=== PATIENT | male | born 1980 | race Caucasian/White ===

== ENCOUNTER 2016-04-27 11:53 | Observation (INO) | payer OTHER ==
[2016-04-27] MEDS ORDERED: Zofran 4 MG/2 ML VIAL IV STA (12:15)
[2016-04-27] MEDS ORDERED: Sodium Chloride 0.9% 1000 ML 1,000 ML IV STA ×2 (12:15→14:13)
--- NOTE | 2016-04-27 12:19 | ERPHSYRPT ---
- History of Present Illness Source: patient Exam Limitations: clinical condition Patient Subjective Stated Complaint: COUGH, CONGESTION, V/D FOR FOUR DAYS Triage Nursing Assessment: AMBULATED TO ROOM WITHOUT DIFFICULTY. SKIN W/D, COLOR NORMAL, RESP NONLABORED. BREATH SOUNDS DIMINISHED. INTERMITTENT NONPROD COUGH. Physician History: Patient with cough congestion and wheezing fever chills weakness over past 4 days this continues at this time with yellow green thick sputum nasal congestion generalized malaise and today 2 episodes of vomiting and one episode of diarrhea. No abdominal pain except with the actual vomiting and diarrhea. Smokes one half pack cigarettes per day. Works full-time at [employer] in [place]. Unable to go to work yesterday. Timing/Duration: today, day(s) (4), worse Modifying Factors: Improves With: rest Associated Symptoms: nausea, vomiting, diaphoresis, cough, chills, fever, loss of appetite, malaise, weakness, No abdominal pain Allergies/Adverse Reactions: acetaminophen [From Darvocet-N 100] Allergy (Verified 04/27/16 12:07) propoxyphene napsylate [From Darvocet-N 100] Allergy (Verified 04/27/16 12:07) Hx Tetanus, Diphtheria Vaccination/Date Given: Yes Hx Influenza Vaccination/Date Given: Yes Hx Pneumococcal Vaccination/Date Given: Yes - Review of Systems Constitutional: Fever, Chills, Fatigue, Lethargy, Malaise, Night Sweats, Weakness Eyes: No Symptoms Ears, Nose, & Throat: Nose Congestion, Throat Pain Respiratory: Cough Cardiac: No Symptoms Abdominal/Gastrointestinal: Nausea, Vomiting, Diarrhea, No Abdominal Pain Genitourinary Symptoms: No Symptoms Musculoskeletal: No Symptoms Skin: No Symptoms Neurological: No Symptoms Psychological: No Symptoms Endocrine: No Symptoms Hematologic/Lymphatic: No Symptoms Immunological/Allergic: No Symptoms All Other Systems: Reviewed and Negative - Past Medical History Pertinent Past Medical History: Yes Neurological History: No Pertinent History ENT History: No Pertinent History Cardiac History: No Pertinent History Respiratory History: No Pertinent History Endocrine Medical History: No Pertinent History Musculoskeletal History: Fractures, Other GI Medical History: No Pertinent History History: No Pertinent History Psycho-Social History: Depression Male Reproductive Disorders: No Pertinent History Other Medical History: chronic back pain - Past Surgical History Past Surgical History: Yes Neuro Surgical History: No Pertinent History Cardiac: No Pertinent History Respiratory: No Pertinent History Gastrointestinal: No Pertinent History Genitourinary: No Pertinent History Musculoskeletal: No Pertinent History Male Surgical History: No Pertinent History Other Surgical History: T and A - Social History Smoking Status: Current every day smoker How long have you smoked: 17 Exposure to second hand smoke: Yes Drug Use: none Patient Lives Alone: No - Nursing Vital Signs Nursing Vital Signs: Initial Vital Signs Temperature 97.8 F Temperature Source Oral Pulse Rate 77 Respiratory Rate 18 Blood Pressure [Right Arm] 101/57 Pain Intensity 4 - Physical Exam General Appearance: mild distress, alert, anxiety, obese Ears, Nose, Throat Exam: pharyngeal erythema, other (nasal congestion) Neck Exam: normal inspection Respiratory Exam: airway intact, diminished breath sounds, prolonged expirations , crackles/rales, rhonchi, No respiratory distress Cardiovascular Exam: regular rate/rhythm, normal heart sounds, normal peripheral pulses Gastrointestinal/Abdomen Exam: soft, No tenderness, No distention, No mass, No guarding, No rebound Rectal Exam: deferred Back Exam: normal inspection, normal range of motion, No CVA tenderness Extremity Exam: normal inspection, normal range of motion, No calf tenderness, No cristina's sign Neurologic Exam: oriented x 3, cooperative, No motor deficits, No sensory deficit Skin Exam: warm, dry, pale, No rash SpO2 Interpretation: borderline oxygenation SpO2: 93 Oxygen Delivery: Room Air - Radiology Exams Chest X-ray Interpretation: Reviewed by me, Discussed w/ radiologist, Infiltrates ( subtle right infra-infrahilar infiltrate versus atelectasis) Ordered Tests: Active Orders 24 hr Category Date Time Status Admission/Status Order ROUTINE Care 04/27/16 16:07 Active Code Status Order ROUTINE Care 04/27/16 16:07 Active Fall Protocol Q1H Care 04/27/16 16:07 Active IV Care Q6H Care 04/27/16 16:07 Active Miscellaneous Nursing Order ROUTINE Care 04/27/16 16:07 Active Yosi Jocelynee, Apply ROUTINE Care 04/27/16 16:07 Active Telemetry ROUTINE Care 04/27/16 16:07 Active Weight,Daily 0600 Care 04/27/16 16:07 Active CBC AM.LAB Lab 04/28/16 05:00 Completed CMP AM.LAB Lab 04/28/16 05:00 Completed MAGNESIUM AM.LAB Lab 04/28/16 05:00 Completed Respiratory Nebulizer Q4H RT 04/27/16 16:07 Completed Respiratory Therapy Consult ROUTINE RT 04/27/16 16:07 Completed Transfer Order Routine Transfer 04/27/16 15:34 Completed Medication Summary Discontinued Medications Generic Name Dose Route Start Last Admin Trade Name Freq PRN Reason Stop Dose Admin Acetaminophen 500 mg 04/27/16 16:07 04/28/16 07:42 Tylenol Extra Strength 500 Mg PO 05/27/16 16:06 500 mg Q4H PRN PRN Administration FEVER Albuterol/Ipratropium 3 ml 04/27/16 14:13 04/27/16 14:50 Duoneb 0.5-3 Mg/3 Ml Neb IH 04/27/16 14:14 3 ml STAT ONE Administration Albuterol/Ipratropium Confirm 04/27/16 14:23 Duoneb 0.5-3 Mg/3 Ml Neb Administered 04/27/16 14:24 Dose 3 ml IH .STK-MED ONE Albuterol/Ipratropium 3 ml 04/27/16 19:00 04/28/16 06:50 Duoneb 0.5-3 Mg/3 Ml Neb IH 05/27/16 18:59 3 ml Q4HRT SHAY Administration Albuterol/Ipratropium 3 ml 04/28/16 08:34 Duoneb 0.5-3 Mg/3 Ml Neb IH 05/28/16 08:33 Q4HPRN PRN SHORTNESS OF BREATH/WHEEZING Sodium Chloride 1,000 mls @ 999 mls/hr 04/27/16 12:15 04/27/16 12:33 Sodium Chloride 0.9% 1000 Ml IV 04/27/16 13:15 999 mls/hr .Q1H1M STA Administration Sodium Chloride Confirm 04/27/16 12:24 Sodium Chloride 0.9% 1000 Ml Administered 04/27/16 12:25 Dose 1,000 mls @ ud .ROUTE .STK-MED ONE Sodium Chloride 1,000 mls @ 999 mls/hr 04/27/16 14:13 04/27/16 14:20 Sodium Chloride 0.9% 1000 Ml IV 04/27/16 15:13 999 mls/hr .Q1H1M STA Administration Ceftriaxone Sodium/Dextrose 50 mls @ 100 mls/hr 04/27/16 14:16 04/27/16 14:23 Rocephin 2 Gm-D5w 50ml Bag IV 04/27/16 14:45 100 mls/hr STAT ONE Administration Sodium Chloride Confirm 04/27/16 14:18 Sodium Chloride 0.9% 1000 Ml Administered 04/27/16 14:19 Dose 1,000 mls @ ud .ROUTE .STK-MED ONE Ceftriaxone Sodium/Dextrose Confirm 04/27/16 14:21 Rocephin 2 Gm-D5w 50ml Bag Administered 04/27/16 14:22 Dose 50 mls @ ud IV .STK-MED ONE Ceftriaxone Sodium/Dextrose 50 mls @ 100 mls/hr 04/28/16 10:00 04/28/16 08:28 Rocephin 1 Gm-D5w 50 Ml Bag IV 05/28/16 09:59 100 mls/hr Q24H10 SHAY Administration Azithromycin 250 mls @ 167 mls/hr 04/27/16 17:00 04/27/16 17:16 Zithromax 500 Mg/ 250 Ml Nacl Premix IV 05/27/16 16:59 167 mls/hr Q24H SHAY Administration Sodium Chloride 1,000 mls @ 150 mls/hr 04/27/16 16:07 04/28/16 10:24 Sodium Chloride 0.9% 1000 Ml IV 05/27/16 16:06 150 mls/hr .Q6H40M SHAY Administration Ondansetron HCl 4 mg 04/27/16 12:15 04/27/16 12:33 Zofran 4 Mg/2 Ml Vial IV 04/27/16 12:16 4 mg STAT STA Administration Ondansetron HCl Confirm 04/27/16 12:24 Zofran 4 Mg/2 Ml Vial Administered 04/27/16 12:25 Dose 4 mg .ROUTE .STK-MED ONE Ondansetron HCl 4 mg 04/27/16 16:07 Zofran 4 Mg/2 Ml Vial IV 05/27/16 16:06 Q6H PRN PRN NAUSEA/VOMITING Oseltamivir Phosphate 75 mg 04/27/16 14:17 04/27/16 14:30 Tamiflu 75mg Capsule PO 04/27/16 14:18 75 mg STAT ONE Administration Oseltamivir Phosphate Confirm 04/27/16 14:29 Tamiflu 75mg Capsule Administered 04/27/16 14:30 Dose 75 mg PO .STK-MED ONE Oseltamivir Phosphate 75 mg 04/27/16 22:00 04/28/16 07:42 Tamiflu 75mg Capsule PO 05/27/16 21:59 75 mg BID SHAY Administration Lab/Rad Data: Laboratory Result Diagrams 04/27/16 12:35 04/27/16 12:35 Laboratory Results 04/27/16 04/27/16 04/27/16 Range/Units 14:45 12:40 12:40 WBC (4.0-10.5) K/mm3 RBC (4.1-5.6) M/mm3 Hgb (12.5-18.0) gm/dl Hct (42-50) % MCV (78-100) fl MCH (26-32) pg MCHC (32-36) g/dl RDW (11.5-14.0) % Plt Count (150-450) K/mm3 MPV (6-9.5) fl Segmented Neutrophils (36.-66.) % Lymphocytes (Manual) (24-44) % Monocytes (Manual) (0.0-12.0) % Eosinophils (Manual) (0.00-3.0) % Differential Comment Platelet Estimate (NORMAL) Puncture Site RIGHT RADIAL pCO2 35 (35-45) mmHg pO2 84 (75-100) mmHg Base Excess 0.8 (-2.0-2.0) O2 Saturation 91.6 L (94-100) g/dF ABG pH 7.45 (7.35-7.45) ABG HCO3 24.3 (22-28) ABG O2 Sat (Measured) 98.7 (95-100) % Raymond Test YES A-a Gradient 22 a/A Ratio 0.79 Hemoglobin 16.3 Carboxyhemoglobin 6.4 (0.0-6.9) % THgb Methemoglobin 0.8 L (1.4-1.5) % Temperature 37.0 C POC O2 Flow Rate 21 % Sodium (136-145) mEq/L Potassium 4.0 (3.5-5.1) mEq/L Chloride (98-107) mEq/L Carbon Dioxide (21-32) mEq/L Anion Gap (5-15) MEQ/L BUN (9-20) mg/dL Creatinine (0.55-1.30) mg/dl Estimated GFR ML/MIN Glucose (70-110) MG/DL Lactic Acid (0.4-2.0) Calcium (8.5-10.1) mg/dL Total Bilirubin (0.2-1.0) mg/dL AST (15-37) U/L ALT (12-78) U/L Alkaline Phosphatase (46-116) U/L Serum Total Protein (6.4-8.2) gm/dL Albumin (3.4-5.0) g/dL Influenza Type A Ag NEGATIVE (NEGATIVE) Influenza Type B Ag POSITIVE (NEGATIVE) RSV (PCR) NEGATIVE (Negative) Streptococcus Screen NEGATIVE (Negative) 04/27/16 04/27/16 04/27/16 Range/Units 12:35 12:35 12:35 WBC 4.0 (4.0-10.5) K/mm3 RBC 5.78 H (4.1-5.6) M/mm3 Hgb 17.3 (12.5-18.0) gm/dl Hct 51.7 H (42-50) % MCV 89.4 (78-100) fl MCH 29.9 (26-32) pg MCHC 33.5 (32-36) g/dl RDW 13.9 (11.5-14.0) % Plt Count 147 L (150-450) K/mm3 MPV 10.4 H (6-9.5) fl Segmented Neutrophils 39 (36.-66.) % Lymphocytes (Manual) 53 H (24-44) % Monocytes (Manual) 7 (0.0-12.0) % Eosinophils (Manual) 1 (0.00-3.0) % Differential Comment NORMAL Platelet Estimate NORMAL (NORMAL) Puncture Site pCO2 (35-45) mmHg pO2 (75-100) mmHg Base Excess (-2.0-2.0) O2 Saturation (94-100) g/dF ABG pH (7.35-7.45) ABG HCO3 (22-28) ABG O2 Sat (Measured) (95-100) % Raymond Test A-a Gradient a/A Ratio Hemoglobin Carboxyhemoglobin (0.0-6.9) % THgb Methemoglobin (1.4-1.5) % Temperature C POC O2 Flow Rate % Sodium 139 (136-145) mEq/L Potassium 3.9 (3.5-5.1) mEq/L Chloride 102 (98-107) mEq/L Carbon Dioxide 27.0 (21-32) mEq/L Anion Gap 13.9 (5-15) MEQ/L BUN 13 (9-20) mg/dL Creatinine 1.06 (0.55-1.30) mg/dl Estimated GFR > 60 ML/MIN Glucose 101 (70-110) MG/DL Lactic Acid 0.9 (0.4-2.0) Calcium 8.5 (8.5-10.1) mg/dL Total Bilirubin 0.3 (0.2-1.0) mg/dL AST 25 (15-37) U/L ALT 21 (12-78) U/L Alkaline Phosphatase 95 (46-116) U/L Serum Total Protein 7.6 (6.4-8.2) gm/dL Albumin 3.2 L (3.4-5.0) g/dL Influenza Type A Ag (NEGATIVE) Influenza Type B Ag (NEGATIVE) RSV (PCR) (Negative) Streptococcus Screen (Negative) - Progress Progress: unchanged Progress Note: 04/27/16 14:24Patient feels somewhat improved note abnormal chest x-ray with possible early infiltrate right upper lobe as well as positive influenza B. Patient still feels very weak O2 sat now is 92 which is borderline. I have recommended admission to the patient will start on IV antibiotics Tamiflu obtain arterial blood gas and respiratory treatments. Discussed case with Dr. Marie who agrees with admission. Discussed with : Frank Will see patient in: hospital (observation) Counseled pt/family regarding: lab results, diagnosis - Departure Time of Disposition: 14:53 Departure Disposition: Observation Clinical Impression: Influenza, bronchopneumonia, Vomiting and diarrhea Pneumonia Qualifiers: Pneumonia type: due to unspecified organism Laterality: right Lung location: upper lobe of lung Qualified Code(s): J18.1 - Lobar pneumonia, unspecified organism Condition: Poor Critical Care Time: No
[2016-04-27] MEDS ORDERED: Sodium Chloride 0.9% 1000 ML 1,000 ML ONE ×2 (12:24→14:18)
[2016-04-27] MEDS ORDERED: Zofran 4 MG/2 ML VIAL ONE (12:24)
--- NOTE | 2016-04-27 12:39 | XRAY ---
Indication: Productive cough, fever, chills. Comparison: September 04, 2015. Portable chest less inflated today with now subtle asymmetric right infrahilar infiltrate versus atelectasis. Remaining heart, lungs, and bony thorax normal.
[2016-04-27 12:52] LABS: Mean Cell Volume 89.4 fl (78-100); Mean Corpuscular Hemoglobin 29.9 pg (26-32); Mean Platelet Volume 10.4 fl (6-9.5); Platelet Count 147 K/mm3 (150-450); Red Blood Count 5.78 M/mm3 (4.1-5.6); Red Cell Distribution Width 13.9 % (11.5-14.0)
[2016-04-27 13:19] LABS: ALBUMIN 3.2 g/dL (3.4-5.0); ALKALINE PHOSPHATASE 95 U/L (46-116); ANION GAP 13.9 MEQ/L (5-15); BILIRUBIN,TOTAL 0.3 mg/dL (0.2-1.0); BLOOD UREA NITROGEN 13 mg/dL (9-20); CHLORIDE 102 mEq/L (98-107); Glucose 101 MG/DL (70-110); Potassium 3.9 mEq/L (3.5-5.1); SGOT/AST 25 U/L (15-37); SGPT/ALT 21 U/L (12-78); SODIUM 139 mEq/L (136-145); Total Protein 7.6 gm/dL (6.4-8.2)
[2016-04-27] MEDS ORDERED: DUONEB 0.5-3 MG/3 ml Neb IH ONE ×2 (14:13→14:23)
[2016-04-27] MEDS ORDERED: ROCEPHIN 2 Gm-D5w 50ML BAG** 50 ML IV ONE ×2 (14:16→14:21)
[2016-04-27] MEDS ORDERED: Tamiflu 75MG Capsule PO ONE ×2 (14:17→14:29)
[2016-04-27 14:49] LABS: A-aADO2 22; ALLEN TEST OK? YES; ARTERIAL BLD GAS O2 SATURATION 98.7 % (95-100); ARTERIAL BLOOD GAS BASE EXCESS 0.8 (-2.0-2.0); ARTERIAL BLOOD GAS FIO2 21 %; ARTERIAL BLOOD GAS PO2 84 mmHg (75-100); ARTERIAL BLOOD GAS pH 7.45 (7.35-7.45)
[2016-04-27 14:50] LABS: Eosinophil 1 % (0.00-3.0); Platelet Estimate NORMAL (NORMAL); Total Cells Counted 100
[2016-04-27] MEDS ORDERED: Zofran 4 MG/2 ML VIAL IV PRN (16:07)
--- NOTE | 2016-04-27 16:57 | PCM.HP ---
History of Present Illness - Chief Complaint Chief Complaint: Shortness of Breath History of Present Illness: is a 35 year old male who reports he has been ill for 4 days, cough productive of brown sputum and fever. He developed nausea and vomiting, was unable to keep anything down yesterday or this morning. He is feeling better since admission, no vomiting since early this morning. He is currently on no medications. - Review of Systems Constitutional: Fever Respiratory: Cough Cardiac: No Chest Pain, No Edema, No Syncope Abdominal/Gastrointestinal: Nausea, Vomiting, No Abdominal Pain, No Diarrhea Genitourinary Symptoms: No Dysuria Skin: No Rash All Other Systems: Reviewed and Negative Medications & Allergies Home Medications: Home Medication List No Home Meds 1 ea UD 09/04/15 [History Confirmed 04/27/16] Allergies/Adverse Reactions: Allergies Allergy/AdvReac Type Severity Reaction Status Date / Time acetaminophen Allergy Verified 04/27/16 12:07 [From Darvocet-N 100] propoxyphene napsylate Allergy Verified 04/27/16 12:07 [From Darvocet-N 100] - Past Medical History Past Medical History: Yes Neurological History: No Pertinent History ENT History: No Pertinent History Cardiac History: No Pertinent History Respiratory History: No Pertinent History Endocrine Medical History: No Pertinent History Musculoskelatal History: Fractures, Other GI Medical History: No Pertinent History History: No Pertinent History Pyscho-Social History: Depression Male Reproductive Disorders: No Pertinent History Comment: chronic back pain - Past Surgical History Past Surgical History: Yes Neuro Surgical History: No Pertinent History Cardiac History: No Pertinent History Respiratory Surgery: No Pertinent History GI Surgical History: No Pertinent History Genitourinary Surgical Hx: No Pertinent History Musculskeletal Surgical Hx: No Pertinent History Male Surgical History: No Pertinent History Other Surgical History: T and A - Social History Smoking Status: Current every day smoker How long have you smoked: 17 Exposure to second hand smoke: Yes Alcohol: None Drug Use: none - Physical Exam Vital Signs: Vital Signs - 24 hr Temp Pulse Resp BP Pulse Ox 04/27/16 16:13 97.7 F 73 20 99/53 98 04/27/16 16:12 97.7 F 73 20 99/53 98 04/27/16 15:45 93 L 04/27/16 15:12 77 18 101/57 95 04/27/16 14:30 101/70 94 L 04/27/16 14:16 79 16 93 L 04/27/16 12:59 79 16 110/69 93 L 04/27/16 12:36 93 L 04/27/16 11:58 18 93 L 04/27/16 11:54 97.8 F 74 18 122/73 93 L General Appearance: no apparent distress Eye Exam: PERRL/EOMI, eyes nml inspection Respiratory Exam: normal breath sounds, lungs clear, No respiratory distress Cardiovascular Exam: regular rate/rhythm, normal heart sounds, normal peripheral pulses Gastrointestinal/Abdomen Exam: soft, normal bowel sounds, No tenderness, No mass Extremity Exam: normal inspection, normal range of motion, pelvis stable Skin Exam: normal color, warm, dry, No rash Assessment/Plan (1) Pneumonia Current Visit: Yes Status: Acute Qualifiers: Pneumonia type: due to unspecified organism Laterality: right Lung location: upper lobe of lung Qualified Code(s): J18.1 - Lobar pneumonia, unspecified organism Assessment & Plan: rocephin and zithromax, likely viral in nature related to influenza B but will cover with abx Code(s): J18.9 - PNEUMONIA, UNSPECIFIED ORGANISM (2) Influenza B Current Visit: Yes Status: Acute Assessment & Plan: Tamiflu, fluids and supportive care Code(s): J10.1 - FLU DUE TO OTH IDENT INFLUENZA VIRUS W OTH RESP MANIFEST
[2016-04-27] MEDS ORDERED: Zithromax 500 MG/ 250 ML NaCl Premix 250 ML IV SCH (17:00)
[2016-04-27] MEDS: DUONEB 0.5-3 MG/3 ml Neb IH SCH ×2 (19:21→23:15)
[2016-04-27] MEDS: Tamiflu 75MG Capsule PO SCH (21:18)
[2016-04-27] MEDS: TYLENOL EXTRA STRENGTH 500 MG PO PRN (21:31)
[2016-04-28] MEDS: Sodium Chloride 0.9% 1000 ML 1,000 ML IV SCH ×3 (01:58→10:24)
[2016-04-28] MEDS: TYLENOL EXTRA STRENGTH 500 MG PO PRN ×2 (02:02→07:42)
[2016-04-28] MEDS: DUONEB 0.5-3 MG/3 ml Neb IH SCH ×2 (02:55→06:50)
[2016-04-28 05:48] LABS: Mean Cell Volume 90.9 fl (78-100); Mean Corpuscular Hemoglobin 29.6 pg (26-32); Mean Platelet Volume 10.2 fl (6-9.5); Platelet Count 125 K/mm3 (150-450); Red Blood Count 5.17 M/mm3 (4.1-5.6); White Blood Count 4.1 K/mm3 (4.0-10.5)
[2016-04-28 06:13] LABS: ALBUMIN 2.7 g/dL (3.4-5.0); ALKALINE PHOSPHATASE 82 U/L (46-116); ANION GAP 12.4 MEQ/L (5-15); BLOOD UREA NITROGEN 11 mg/dL (9-20); CHLORIDE 108 mEq/L (98-107); Carbon Dioxide 25.6 mEq/L (21-32); Glucose 102 MG/DL (70-110); SGOT/AST 23 U/L (15-37); SGPT/ALT 16 U/L (12-78); SODIUM 142 mEq/L (136-145); Total Protein 6.4 gm/dL (6.4-8.2)
[2016-04-28 06:35] LABS: BILIRUBIN,TOTAL < 0.1 mg/dL (0.2-1.0)
[2016-04-28] MEDS: Tamiflu 75MG Capsule PO SCH (07:42)
[2016-04-28] MEDS ORDERED: DUONEB 0.5-3 MG/3 ml Neb IH PRN (08:34)
--- NOTE | 2016-04-28 08:48 | PCM.DS ---
Discharge Summary Date of Admission: 04/27/16 16:05 Admitting Physician: HAJA HARRISON Primary Care Provider: ZAN HEARD Allergies Allergies acetaminophen [From Darvocet-N 100] Allergy (Verified 04/27/16 12:07) propoxyphene napsylate [From Darvocet-N 100] Allergy (Verified 04/27/16 12:07) Hospital Summary - Hospital Course Hospital Course: patient was admitted with influenza, pneumonia and vomiting. taking a regular diet since admission, no vomiting. feels well today. has some cough and sinus congestion but otherwise feels well. has been afebrile since admission - Vitals & Intake/Output Vital Signs: Vital Signs Temperature 97.7 F 04/28/16 07:26 Pulse Rate 74 04/28/16 07:26 Respiratory Rate 22 04/28/16 07:26 Blood Pressure 102/56 04/28/16 07:26 O2 Sat by Pulse Oximetry 94 L 04/28/16 07:26 Intake & Output: Intake & Output 04/25/16 04/26/16 04/27/16 04/28/16 11:59 11:59 11:59 11:59 Intake Total 1160 Balance 1160 Weight 145.603 kg - Lab Result Diagrams: 04/28/16 05:00 04/28/16 05:00 Lab Results-Last 24 Hrs: Lab Results-Last 24 Hours 04/28/16 04/28/16 Range/Units 05:00 05:00 WBC 4.1 (4.0-10.5) K/mm3 RBC 5.17 (4.1-5.6) M/mm3 Hgb 15.3 (12.5-18.0) gm/dl Hct 47.0 (42-50) % MCV 90.9 (78-100) fl MCH 29.6 (26-32) pg MCHC 32.6 (32-36) g/dl RDW 14.0 (11.5-14.0) % Plt Count 125 L (150-450) K/mm3 MPV 10.2 H (6-9.5) fl Sodium 142 (136-145) mEq/L Potassium 4.0 (3.5-5.1) mEq/L Chloride 108 H (98-107) mEq/L Carbon Dioxide 25.6 (21-32) mEq/L Anion Gap 12.4 (5-15) MEQ/L BUN 11 (9-20) mg/dL Creatinine 0.93 (0.55-1.30) mg/dl Estimated GFR > 60 ML/MIN Glucose 102 (70-110) MG/DL Calcium 7.8 L (8.5-10.1) mg/dL Magnesium 2.0 (1.8-2.4) mg/dL Total Bilirubin < 0.1 L (0.2-1.0) mg/dL AST 23 (15-37) U/L ALT 16 (12-78) U/L Alkaline Phosphatase 82 (46-116) U/L Serum Total Protein 6.4 (6.4-8.2) gm/dL Albumin 2.7 L (3.4-5.0) g/dL - Procedures and Test Procedures and Tests throughout Hospitalization: Therapy Orders & Screens 04/28/16 08:34 Respiratory Nebulizer Comment: DUONEB Q4PRN Diagnosis: Shortness of Breath Discharge Exam General Appearance: no apparent distress, alert, obese Respiratory Exam: normal breath sounds, lungs clear, No respiratory distress Cardiovascular Exam: regular rate/rhythm, normal heart sounds Gastrointestinal/Abdomen Exam: soft, No tenderness, No mass Extremity Exam: normal inspection, normal range of motion Final Diagnosis/Problem List - Final Discharge Diagnosis/Problem (1) Pneumonia Current Visit: Yes Status: Acute Assessment & Plan: home on po levaquin x 5 days (2) Influenza B Current Visit: Yes Status: Acute Assessment & Plan: tamiflu - Discharge Disposition: Home, Self-Care Condition: Poor Prescriptions: New Levofloxacin [Levaquin] 750 mg PO DAILY #5 tablet Oseltamivir 75 mg [Tamiflu 75MG Capsule] 75 mg PO BID #8 cap Discontinued No Home Meds 1 ea MC UD Follow up with: ZAN HEARD [Primary Care Provider] - 1 Week
[2016-04-28] MEDS ORDERED: ROCEPHIN 1 Gm-D5w 50 ml Bag** 50 ML IV SCH (10:00)
[2016-04-28 11:10] VITALS: BP 111/64; PULSE 86
[2016-04-28 16:31] VITALS: O2SAT 93
== END 2016-04-28 11:15 | disposition home or self-care (01) ==
LOC: ED 11:53 → MED SURG 16:05
PROVIDERS: ADMIT Family Medicine; ATTEND Family Medicine
DX: J18.1 Lobar pneumonia, unspecified organism (principal); J10.1 Influenza due to other identified influenza virus with other respiratory manifestations; M54.9 Dorsalgia, unspecified; G89.29 Other chronic pain; F45.42 Pain disorder with related psychological factors; Z72.0 Tobacco use
CPT/HCPCS: 36000; 36415; 36600; 71010; 80053; 82375; 82803; 83605; 83735; 85025; 85027; 87040; 87070; 87430; 87631; 93268; 94640; 94760; 96360; 96361; 96365; 96374; 99284; 99285; G0378; J0456; J0696; J2405